=== PATIENT | male | born 1990 | race African-American/Black ===

== ENCOUNTER 2016-12-30 00:39 | Emergency (ER) | payer OTHER ==
[~2016-12-30] VITALS: Ht 190.5 cm; Wt 102.1 kg
[~2016-12-30 00:39] MED LIST: ANAPROX DS550 MG PO; BACTRIM DS 8001 TA1 PO; KEFLEX500 MG PO; KENALOG0.1% TP; MOTRIN800 MG PO; Motrin,Rufen800 MG PO; Orphenadrine C100 MG PO; TORADOL10 MG PO; VICODIN 5/500 505 MG PO
[2016-12-30 00:44] VITALS: BP 137/87
[2016-12-30] MEDS ORDERED: AMOXICILLIN500 M2 PO (00:57)
== END 2016-12-30 01:15 | disposition home or self-care (01) ==
LOC: ED 00:39
DX: S01.511A Laceration without foreign body of lip, initial encounter (principal); M26.30 Unspecified anomaly of tooth position of fully erupted tooth or teeth; F17.200 Nicotine dependence, unspecified, uncomplicated; W18.39XA Other fall on same level, initial encounter; Y93.9 Activity, unspecified; Y92.9 Unspecified place or not applicable; Y99.9 Unspecified external cause status

== ENCOUNTER 2017-09-15 08:29 | Emergency (ER) | payer SELFPAY ==
[~2017-09-15] VITALS: Ht 177.8 cm; Wt 83.9 kg
[~2017-09-15 08:29] MED LIST changes: +AMOXICILLIN500 M2 PO
[2017-09-15 09:07] LABS: BASO % 0.3 % (0.0-1.0); EOS # 0.2 10*3/uL (0.0-0.4); HEMATOCRIT 42.6 % (42.0-52.0); HEMOGLOBIN 14.1 g/dl (14.0-18.0); LYMPH # 1.9 10*3/uL (1.3-4.4); LYMPH % 19.8 % (27.0-41.0); MEAN CELL VOLUME 81.8 fl (80.0-94.0); MEAN CORPUSCULAR HGB 27.1 pg (27.0-31.0); MEAN CORPUSCULAR HGB CONC 33.1 g/dl (33.0-37.0); MEAN PLATELET VOLUME 9.9 fl (9.6-12.3); MONO # 0.8 10*3/uL (0.1-1.0); MONO % 8.1 % (3.0-9.0); NEUT # 6.7 10*3/uL (2.3-7.9); NEUT % 69.6 % (47.0-73.0); PLATELET COUNT AUTOMATED 285 10*3/uL (130-400); RED BLOOD COUNT 5.21 10*6/uL (4.50-5.90); RED CELL DISTRI WIDTH 13.3 % (0-14.5); WHITE BLOOD COUNT 9.6 10*3/uL (4.8-10.8)
[2017-09-15 09:22] LABS: ALBUMIN 4.4 gm/dl (3.1-4.5); ALKALINE PHOSPHATASE 55 U/L (45-117); BUN 16 mg/dl (7-24); CHLORIDE 104 mmol/L (98-107); CREATININE 1.43 mg/dL (0.70-1.30); POTASSIUM 3.5 mmol/L (3.5-5.1); SGOT/AST 46 IU/L (3-35); SGPT/ALT 56 U/L (12-78); SODIUM 140 mmol/L (136-145); TOTAL PROTEIN 8.2 gm/dL (6.4-8.2)
[2017-09-15 09:26] LABS: URINE AMPHETAMINES > 1000 (1000ng/ml); URINE BARBITURATES < 200 (200ng/ml); URINE CANNABINOIDS (THC) > 50 (50ng/ml); URINE COCAINE > 300 (300ng/ml); URINE METHADONE < 300 (300ng/ml); URINE OPIATES > 300 (300ng/ml)
[2017-09-15 09:27] LABS: URINE BENZODIAZEPINES < 200 (200ng/ml)
[2017-09-15 09:30] LABS: URINE PHENCYCLIDINE < 25 (25ng/ml)
[2017-09-15 09:30] LABS: ETHYL ALCOHOL < 3.0 mg/dl (<3)
[2017-09-15 09:48] VITALS: BP 162/88
== END 2017-09-15 10:58 | disposition home or self-care (01) ==
LOC: ED 08:29
PROVIDERS: Emergency Medicine
DX: S30.811A Abrasion of abdominal wall, initial encounter (principal); F41.9 Anxiety disorder, unspecified; F32.9 Major depressive disorder, single episode, unspecified; X58.XXXA Exposure to other specified factors, initial encounter; Y93.89 Activity, other specified; Y92.89 Other specified places as the place of occurrence of the external cause; Y99.9 Unspecified external cause status